=== PATIENT | female | born 1995 | race Caucasian/White ===

== ENCOUNTER 2018-12-01 17:30 | Emergency (ER) | payer BC ==
[~2018-12-01] VITALS: Ht 170.2 cm; Wt 61.2 kg
[2018-12-01 17:30] VITALS: BP 128/89
[2018-12-01] MEDS ORDERED: TDAP [DIPH/PERTUSSIS/TET] 0.5 ML VIAL IM ONE ×2 (18:00→18:07)
--- NOTE | 2018-12-01 18:51 | NUR ---
Patient discharged to home in stable condition. Written and verbal after care instructions given. Patient verbalizes understanding of instruction.
== END 2018-12-01 18:53 | disposition home or self-care (01) ==
LOC: ER 17:41
DX: S30.810A Abrasion of lower back and pelvis, initial encounter (principal); F10.10 Alcohol abuse, uncomplicated; Y90.9 Presence of alcohol in blood, level not specified; W18.09XA Striking against other object with subsequent fall, initial encounter; Y93.89 Activity, other specified; Y92.89 Other specified places as the place of occurrence of the external cause; Y99.8 Other external cause status
CPT/HCPCS: 90471; 90715; 99283; A4606; Z7610